=== PATIENT | female | born 2000 ===

== ENCOUNTER 2018-03-05 22:27 | Emergency (ER) | payer MEDICAID, OTHER ==
--- NOTE | 2018-03-05 23:51 | OBHP ---
Datetime: 03/05/2018 23:49 IP Adm Impression: Term, intrauterine IP Admit Plan: Discharge home Admit Comment, IP Provider: at 39+weks came witnc/o ctxs started 2 hrs ayush, brittany ,10/16,no vb , lof+fm obhx 1 x pmh de med pnv all nkda psh de soch de ve /-2 a/p att 39+weks inealy ;abor dc home labor give po hy cont pnv f/ Pelvic Type - PN: Adequate Extremities - PN: Normal Abdomen - PN: Normal Back - PN: Normal Breast - PN: Normal Lungs - PN: Normal Heart - PN: Normal Thyroid - PN: Normal Neurologic - PN: Normal HEENT - PN: Normal General - PN: Normal FHR - Baseline A Provider: 130 Contraction Comments Provider: baileyg IP Hx Assessment: The History has been Reviewed and is Current EGA AdmitDate IP: 40.0 Vital Signs Provider: Reviewed; Within Normal Limits IP Chief Complaint: Uterine contractions NICHD Variability Prov Fetus A: Moderate 6-25bpm NICHD Accel Fetus A IP Provider: 15X15 FHR Category Provider Fetus A: Category I Dilatation, Provider: 2 Effacement, Provider: 60 Station, Provider: -2 Genitourinary Exam: Normal DTRs - PN: Normal
--- NOTE | 2018-03-05 23:54 | OBDCSUM ---
Datetime: 03/05/2018 23:49 Discharged to, Provider: Home Follow up at, Provider: friday Disch Instr Activity: Normal activity Disch Instr Diet: Regular Follow up in weeks, Provider: cli ic Disch Referrals: None Disch Activity Restrictions: No sexual activity; Nothing in vagina - [place], tampons, douche Discharge Comment, Provider: dc home labor give po hy cont pnv f/ Discharge Diagnosis Prov Other: 39 we early labor
== END 2018-03-05 23:55 | disposition home or self-care (01) ==
LOC: C.EROB 22:27
DX: O47.1 False labor at or after 37 completed weeks of gestation (principal); Z3A.39 39 weeks gestation of pregnancy

== ENCOUNTER 2018-03-06 03:06 | Inpatient (IN) | payer MEDICAID, OTHER ==
[2018-03-06 03:32] VITALS: BMI 30.2
[2018-03-06] MEDS ORDERED: Lactated Ringer's 1,000 ML IV SCH (03:45)
[2018-03-06 04:10] LABS: BASO % 0.3 % (0.0-2.0); EOS % 0.4 % (0.0-4.0); HEMOGLOBIN 10.9 g/dL (11.0-16.0); LYMPH # 3.6 K/uL (1.0-4.3); LYMPH % 35.6 % (20.0-40.0); MEAN CELL VOLUME 78.5 fL (81.0-99.0); MEAN CORPUSCULAR HEMOGLOBIN 25.8 pg (27.0-31.0); MEAN CORPUSCULAR HGB CONC 32.9 g/dL (33.0-37.0); MEAN PLATELET VOLUME 9.1 fL (7.2-11.7); MONO # 0.5 K/uL (0.0-0.8); MONO % 4.7 % (0.0-10.0); NRBC % 0.1 % (0.0-2.0); RBC 4.23 Mil/uL (3.80-5.20); WHITE BLOOD COUNT 10.2 K/uL (4.8-10.8)
[2018-03-06 04:24] LABS: BLOOD UREA NITROGEN 7 mg/dL (7-17); CALCIUM 9.5 mg/dl (8.6-10.4); GFR NON-AFRICAN AMERICAN > 60
--- NOTE | 2018-03-06 05:42 | OBADHP ---
Datetime: 03/06/2018 05:40 FHR - Baseline A Provider: 130 Vital Signs Provider: Reviewed; Within Normal Limits NICHD Variability Prov Fetus A: Moderate 6-25bpm NICHD Accel Fetus A IP Provider: 15X15 FHR Category Provider Fetus A: Category I Dilatation, Provider: 10 Effacement, Provider: 100 Station, Provider: 0 Datetime: 03/05/2018 23:49 Admit Comment, IP Provider: at 39+weks came witnc/o ctxs started 2 hrs ahgo, irrg ,10/16,no vb , lof+fm obhx 1 x pmh de med pnv all nkda psh de soch de ve /-2 a/p att 39+weks inealy ;abor dc home labor give po hy cont pnv f/ pt came back and have ctxs . 100/0 a/p at 40weeks in active labor admit to l_d npo/ivf labs pain ma anticipate Pelvic Type - PN: Adequate Extremities - PN: Normal Abdomen - PN: Normal Back - PN: Normal Breast - PN: Normal Lungs - PN: Normal Heart - PN: Normal Thyroid - PN: Normal Neurologic - PN: Normal HEENT - PN: Normal General - PN: Normal Contraction Comments Provider: irrg IP Hx Assessment: The History has been Reviewed and is Current IP Chief Complaint: Uterine contractions Genitourinary Exam: Normal DTRs - PN: Normal EGA AdmitDate IP: 40.0 IP Adm Impression: Term, intrauterine IP Admit Plan: Discharge home
--- NOTE | 2018-03-06 05:49 | OBPN ---
Datetime: 03/06/2018 05:40 IP Progress Impression: Normal progression of labor IP Procedures: Sterile Vag Exam FHR - Baseline A Provider: 130 IP Progress Note Comment: pt was examined at bed side ve fd/100/0 start pushing anticipate Vital Signs Provider: Reviewed; Within Normal Limits NICHD Accel Fetus A IP Provider: 15X15 FHR Category Provider Fetus A: Category I NICHD Variability Prov Fetus A: Moderate 6-25bpm Dilatation, Provider: 10 Effacement, Provider: 100 Station, Provider: 0 Datetime: 03/05/2018 23:49 Contraction Comments Provider: irrg
--- NOTE | 2018-03-06 05:49 | OBDS ---
MATERNAL INFORMATION Provider Comments: baby de;iverd in nato. end clean apar 9/9 no com cord gas and blood LABOR SUMMARY EDC: 03/06/2018 00:00 LABOR INFORMATION Onset of Labor: 03/05/2018 22:00 Group B Beta Strep: Negative MEMBRANES Membranes Rupture Method: Spontaneous Rupture of Membranes: 03/06/2018 02:00 Length of Rupture (hrs): 3.70 Amniotic Fluid Color: Clear Amniotic Fluid Amount: Moderate Amniotic Fluid Odor: Normal BABY A INFORMATION Infant Delivery Date/Time: 03/06/2018 05:42 Method of Delivery: Vaginal Born in Route : No : N/A Forceps: N/A Vacuum Extraction: N/A Shoulder Dystocia : No SHOULDER DYSTOCIA BABY A Delivery Date/Time: 03/06/2018 05:42 PRESENTATION/POSITION BABY A Presentation: Cephalic Cephalic Presentation: Vertex Vertex Position: Left Occipital Anterior Breech Presentation: N/A INFORMATION BABY A Gestational Age at Delivery: 40.0 Gestational Status: Term Outcome : Liveborn Infant Condition : Stable Infant Sex: Female IDENTIFICATION/MEDS BABY A ID Band Number: [id number] Sensor Number: [id number] WEIGHT/LENGTH BABY A Infant Birthweight (gms): 3905 Weight (lb): 8 Infant Weight (oz): 10 Length Inches: 19.75 Length cms: 50.2 CORD INFORMATION BABY A No. Cord Vessels: 3 Suction: None
[2018-03-06 11:14] LABS: SQUAMOUS EPITHIAL 1 /hpf (0-5); URINE BILIRUBIN NEGATIVE (NEGATIVE); URINE BLOOD 3+ (NEGATIVE); URINE CLARITY Hazy (Clear); URINE COLOR Red (YELLOW); URINE GLUCOSE (UA) 1+ mg/dL (Normal); URINE LEUKOCYTE ESTERASE TRACE Leu/uL (Negative); URINE PROTEIN 1+ mg/dL (NEGATIVE); URINE UROBILINOGEN NORMAL mg/dL (0.2-1.0)
[2018-03-07 00:19] VITALS: RESP 20
[2018-03-07] MEDS ORDERED: Oxycodone/Acetaminophen 5/325 mg Tab PO PRN (07:19)
[2018-03-07 08:45] LABS: BASO # 0.1 K/uL (0.0-0.2); BASO % 0.6 % (0.0-2.0); EOS # 0.1 K/uL (0.0-0.7); EOS % 0.6 % (0.0-4.0); HEMOGLOBIN 9.9 g/dL (11.0-16.0); LYMPH # 3.3 K/uL (1.0-4.3); LYMPH % 26.4 % (20.0-40.0); MEAN CELL VOLUME 78.3 fL (81.0-99.0); MEAN CORPUSCULAR HEMOGLOBIN 26.2 pg (27.0-31.0); MEAN CORPUSCULAR HGB CONC 33.5 g/dL (33.0-37.0); MEAN PLATELET VOLUME 9.1 fL (7.2-11.7); MONO # 0.6 K/uL (0.0-0.8); MONO % 4.5 % (0.0-10.0); NEUT # 8.6 K/uL (1.8-7.0); NEUT % 67.9 % (50.0-75.0); RBC 3.77 Mil/uL (3.80-5.20); RED CELL DISTRIBUTION WIDTH 14.8 % (11.5-14.5); WHITE BLOOD COUNT 12.6 K/uL (4.8-10.8)
[2018-03-07] MEDS: Multiple Vitamins Tab PO SCH (09:54)
--- NOTE | 2018-03-07 11:53 | OBPPN ---
Datetime: 03/07/2018 11:49 PP Pain Prov: Within normal limits PP Nausea Prov: Denies PP Breasts Prov: Not Done PP Heart Prov: Normal PP Lungs Prov: Normal PP Abdomen/Uterus Prov: Normal PP Lochia Prov: Normal PP Vulva/Perineum Prov: Normal PP CVA Tenderness Prov: Normal PP Extremities Prov: Normal PP C/S Incision Prov: Not Applicable PP Progress Prov: Normal PP Comments Phys Exam Prov: Fundus firm and non-tender Below Umbilicus PP Impression Prov: Normal progression PP Plan Prov: Continue present management PP Progress Note Prov: PPD # 1 S/P without complications PP H_H 9.9/29.5 and asymptomatic withou difficulties Stable and Satisfactory condition and recovery Advance care [facility] to Discharge home in AM IP PP Procedures: None Vital Signs Provider PP: Reviewed; Within Normal Limits
[2018-03-08 08:04] VITALS: PULSE 83; TEMP 97.4; O2SAT 99
[2018-03-08] MEDS: Multiple Vitamins Tab PO SCH (09:42)
[2018-03-08 16:10] VITALS: BP 107/61
--- NOTE | 2018-03-08 21:05 | OBDCSUM ---
Datetime: 03/08/2018 08:12 Discharge Instructions, Provider: Routine instructions given Discharge Diagnosis, Provider: Term Delivered Discharge Time: 03/08/2018 11:00 Follow up in weeks, Provider: 6 weeks Contraception discussed, Prov: Yes Discharge Diagnosis Prov Other: Teen /[place] mom Chronic anemia Contraception counseling Contraception after Delivery: Control Pill/Patch
--- NOTE | 2018-03-08 21:05 | OBPPN ---
Datetime: 03/08/2018 20:56 PP Pain Prov: Within normal limits PP Nausea Prov: Denies PP Flatus Prov: Yes PP BM Prov: Yes PP Breasts Prov: Normal PP Heart Prov: Normal PP Lungs Prov: Normal PP Abdomen/Uterus Prov: Normal PP Lochia Prov: Normal PP Vulva/Perineum Prov: Normal PP CVA Tenderness Prov: Normal PP Extremities Prov: Normal PP C/S Incision Prov: Not Applicable PP Progress Prov: Normal PP Comments Phys Exam Prov: Breasts: no cracked nipples Abdomen: Soft. Non distended. (+) BS. Fundus firm, mobile, non tender 1 FB below umbilicus. Mild l ochia rubra Extremities: no calf tenderness All other systems reviewed and are negative PP Impression Prov: Normal progression PP Plan Prov: Discharge PP Progress Note Prov: Patient seen and evalauted earlier this morning; received in room 454. Breast feeding exclusively. Denies nausea, vomiting; voiding and ambulating without difficulty. Denies head aches, lightheadedness, dizziness. P.E.: as above. WD in NAD. Awake, alert, oriented to time, person and place. Pleasant and cooerati ve. FOB present - H/H PPD#1 9.9/29.5. Rh (+) Assessment: PPD#2, 17 y.o. P1, S/P . Afebrile, vital signs stable. Chronic anemia - asymptomati c and hemodynamically stable. Interested in depoProvera for contraception. Clinically stable. Plan: 1) Dischargehome 2) See full discharge instructions Vital Signs Provider PP: Reviewed; Within Normal Limits
== END 2018-03-08 12:00 | disposition home or self-care (01) | DRG 775 ==
LOC: C.EROB 03:06 → C.4D 03:20 → C.4M 09:26
PROVIDERS: ADMIT Obstetrics & Gynecology; ATTEND Obstetrics & Gynecology
PROC: 10E0XZZ Delivery of Products of Conception, External Approach (ICD-10-PCS; principal; 2018-03-06)
DX: O99.02 Anemia complicating childbirth (principal); D64.9 Anemia, unspecified; Z3A.39 39 weeks gestation of pregnancy; Z37.0 Single live birth